=== PATIENT | male | born 1985 | race Two or more races ===

== ENCOUNTER 2020-11-21 08:50 | Emergency (ER) | payer MEDICAID, SELFPAY ==
--- NOTE | ~2020-11-21 | XR_ITS ---
EXAMINATION: XR SHOULDER, LEFT CLINICAL INFORMATION: Left shoulder pain with limited mobility COMPARISON: None TECHNIQUE: AP external rotation, Grashey, scapular Y views of the left shoulder. FINDINGS: The bones and soft tissues are normal. No fracture. Glenohumeral and acromioclavicular alignment is anatomic with normal joint space. No abnormal soft tissue calcifications. XR/XR shoulder LT min 2V IMPRESSION: Normal left shoulder.
--- NOTE | ~2020-11-21 | XR_ITS ---
EXAMINATION: XR HUMERUS, LEFT CLINICAL INFORMATION: Pain. Trauma. COMPARISON: Previous left shoulder x-ray from earlier the same day TECHNIQUE: AP and lateral views of the left humerus. FINDINGS: The bones and soft tissues are normal. No fracture. Imaged portions of the shoulder and elbow are unremarkable. XR/XR humerus LT IMPRESSION: Normal left humerus.
[2020-11-21 08:55] VITALS: BP 155/82; PULSE 92; RESP 16; TEMP 36.4; O2SAT 99; BMI 27.1
--- NOTE | 2020-11-21 09:42 | ED_ITS ---
HPI - Extremity Problem General Chief complaint: Extremity Injury, Upper Stated complaint: lt arm pain Time Seen by Provider: 11/21/20 09:20 Source: patient Mode of arrival: ambulatory Limitations: no limitations History of Present Illness HPI Narrative: 35-year-old male presents with left shoulder pain. Six days ago patient fell down stairs while slipping on a fabric she and fell onto his left shoulder. He did not hit his head, low loss of consciousness. He was fine until 2 days ago he had sudden left shoulder pain. He has been trying ice packs and Vicks, states that he cannot sleep due to pain. 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 States he is on tramadol. I would patient then states he is not working with a pain clinic. Related Data Previous Rx's Medication Instructions Recorded oxycodone 5 mg capsule 5 mg PO Q6H 3 Days #12 cap 11/21/20 Allergies Allergy/AdvReac Type Severity Reaction Status Date / Time No Known Allergies Allergy Verified 11/21/20 08:57 Review of Systems Constitutional: Constitutional: Denies body ache(s), Denies chills, Denies fatigue, Denies fever(s), Denies headache(s), Denies malaise and Denies weakness Eyes: Eyes: Denies diplopia ENT: Denies vertigo, Denies dizziness, Denies headache(s) and Denies throat swelling Cardiovascular: Cardiovascular: Denies chest pain, Denies syncope, Denies leg edema, Denies lightheadedness, Denies Loss of Consciousness, Denies palpitations and Denies dyspnea Respiratory: Respiratory: Denies chest congestion, Denies cough and Denies dyspnea Gastrointestinal: Gastrointestinal: Reports abdominal pain, Denies hematochezia, Denies constipation, Denies diarrhea and Denies vomiting Musculoskeletal: Musculoskeletal: Reports arthralgias Comments: Left shoulder pain Neurologic: Denies confusion, Denies vertigo, Denies dizziness, Denies syncope, Denies headache(s) and Denies weakness Psychiatric: Psychiatric: Denies anxiety, Denies confusion and Denies depression Endocrine: Endocrine: Denies fatigue and Denies palpitations Allergic/Immunologic: Allergic/Immunologic: Denies throat swelling PMFSH Past Medical History Medical History (Updated 11/21/20 @ 10:59 by DANISHA Powers) No known health problems Social History Social History Advance Directives: No Physical Exam Vital Signs: Vital Signs: Last Vital Signs Temp 97.6 F 11/21/20 08:55 Pulse 92 11/21/20 08:55 Resp 16 11/21/20 08:55 BP 155/82 H 11/21/20 08:55 Pulse Ox 99 11/21/20 08:55 Body Mass Index 27.1 Const: General: No confusion Nutritional Appearance: well nourished Orientation/consciousness: No confusion Limitations: no limitations Eyes: Pupils: Equal, round and reactive pupils present Neck: Neck: Yes full ROM, Yes no lymphadenopathy and Yes supple Resp: Effort & Inspection: normal respiratory effort and able to speak in complete sentences Auscultation: clear to auscultation bilaterally, no crackles, no rales, no rhonchi and no wheezes Cardio: Rate: regular rate Rhythm: regular rhythm Heart sounds: S1 normal heart sound present and S2 normal heart sound present Skin: General skin exam: no rashes or lesions noted Neuro: General: No confusion Cranial nerves: Yes Equal, round and reactive pupils present Extrem: Left upper extremity: normal capillary refill, no joint enlargement and shoulder/upper arm Details: tenderness Location: of the A-C joint and of the proximal humerus, axillary nerve sensory function normal and abnormal ROM Details: pain with active ROM and pain with passive ROM; Negative for no ecchymosis, no crepitus and no unsual warmth; No no edema Psych: Appearance: grossly normal Affect: normal affect Attitude: cooperative Thought process: Normal thought process present Course Course Course Narrative: Patient has left shoulder pain. Cannot range her shoulder at all due to pain. Patient has intact left upper extremity radial pulse, sensation, motor strength, can flex and extend his elbow. 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 X-ray left shoulder and left humerus show no fracture. Most likely shoulder sprain, although mechanism is unclear. Gave patient sling, have patient follow- up with orthopedics. Discharge Plan Discharge Clinical Impression: Other sprain of left shoulder joint, initial encounter Patient Disposition: Home, Self-Care Instructions: Shoulder Sprain (ED), Shoulder Immobilizer (ED) Additional Instructions: PLease call Ortho on Monday, PLease take Please alternate Tylenol and ibuprofen for pain. Take 1 or the other every 4 hours. For example, at midnight take 1000 mg of Tylenol, then at 4:00 a.m. take 800 mg ibuprofen, at 8:00 a.m. take 1000 mg of Tylenol, at noon take 800 mg of ibuprofen, at 4:00 p.m. take 1000 mg of Tylenol, at 8:00 p.m. take 800 mg of ibuprofen. Do not exceed 3000 mg of Tylenol in 24 hours. This method is proven to be as effective as an opioid for pain control.medicine as needed and as prescribed. If you have worsening pain, fevers, redness or swelling, nausea or vomiting, please return to emergency ? Prescriptions: New oxycodone 5 mg capsule 5 mg PO Q6H 3 Days Qty: 12 RF: 0 Referrals: Vineet Bach MD [Physician] - 2 days (left shoulder pain s/p injury 6 days ago, reduced ROM) Interventions: ED Discharge Assessment Last Done: 11/21/20 11:22 Discharge Date/Time: 11/21/20 11:23
[2020-11-21] MEDS: oxyCODONE HCl Immed Release 5 MG TABLET PO (10:00)
== END 2020-11-21 11:23 | disposition home or self-care (01) ==
PROVIDERS: Emergency Provider Emergency Medicine Emergency Medical Services; PCP Family Medicine
DX: S43.402A Unspecified sprain of left shoulder joint, initial encounter (principal); M25.512 Pain in left shoulder; W10.9XXA Fall (on) (from) unspecified stairs and steps, initial encounter; Y93.9 Activity, unspecified; Y92.9 Unspecified place or not applicable; Y99.9 Unspecified external cause status; Z79.899 Other long term (current) drug therapy
CPT/HCPCS: 73030; 73060; 99283; 99284

== ENCOUNTER 2024-12-04 11:31 | Outpatient (REF) | payer MEDICAID, SELFPAY ==
[2024-12-04 12:20] LABS: Hematocrit 42.4 % (42.0-52.0); Hemoglobin 14.8 g/dl (14.0-18.0); Mean Corpuscular HGB Conc 34.9 g/dl (31.0-36.0); Mean Corpuscular Hemoglobin 31.1 pg (27.0-33.0); Mean Corpuscular Volume 89.1 fL (80.0-98.0); NRBC Abs Auto 0.000 X10*3/uL (0.0-0.012); NRBC Pct Auto 0.0 /100WBC (0.0-0.2); Platelet Count 250 X10*3/uL (160-400); Red Blood Count 4.76 X10*6/uL (4.60-5.80); White Blood Count 9.1 X10*3/uL (4.8-10.8)
[2024-12-04 12:57] LABS: Anion Gap 8 (12-20); Blood Urea Nitrogen 10 mg/dL (9-16); Calcium 9.7 mg/dL (8.4-10.2); Carbon Dioxide 29 mmol/L (22-29); Chloride 107 mmol/L (96-108); Estimated Glomerular Filt Rate > 60; Potassium 4.0 mmol/L (3.3-5.1); Sodium 140 mmol/L (135-145)
== END 2024-12-04 11:32 | disposition home or self-care (01) ==
LOC: HO.LAB 11:31
PROVIDERS: PCP Family Medicine; Visit Provider Family Medicine
DX: R00.2 Palpitations (principal)
CPT/HCPCS: 36415; 80048; 84443; 85027